=== PATIENT | female | born 1960 | race Caucasian/White ===

== ENCOUNTER → 2017-10-31 | Outpatient (CLI) | payer OTHER ==
[~2017-10-31] VITALS: Ht 152.4 cm; Wt 74.8 kg
== END | disposition home or self-care (01) ==
LOC: PPHC 17:16
DX: J03.80 Acute tonsillitis due to other specified organisms (principal)

== ENCOUNTER → 2018-01-16 | Outpatient (CLI) | payer OTHER | END | disposition home or self-care (01) | LOC: PPHC 09:45 | DX: L03.032 Cellulitis of left toe (principal) ==

== ENCOUNTER 2018-06-21 14:53 | Emergency (ER) | payer OTHER ==
[~2018-06-21] VITALS: Ht 160 cm; Wt 68.0 kg
== END 2018-06-21 18:10 | disposition home or self-care (01) ==
LOC: ER 14:53
DX: S52.531A Colles' fracture of right radius, initial encounter for closed fracture (principal); W18.39XA Other fall on same level, initial encounter; Y93.89 Activity, other specified; Y92.488 Other paved roadways as the place of occurrence of the external cause; Y99.8 Other external cause status

== ENCOUNTER 2018-07-13 12:31 | Outpatient (CLI) | payer OTHER | END 2018-07-13 12:49 | disposition home or self-care (01) | LOC: NUCLEAR 12:31 | DX: M81.0 Age-related osteoporosis without current pathological fracture (principal); M89.8X0 Other specified disorders of bone, multiple sites ==

== ENCOUNTER 2018-07-13 13:39 | Outpatient (CLI) | payer OTHER | END 2018-07-13 13:47 | disposition home or self-care (01) | LOC: RAD 13:39 | DX: M79.641 Pain in right hand (principal) ==

== ENCOUNTER 2018-09-03 12:06 | Outpatient (CLI) | payer OTHER | END 2018-09-03 14:42 | disposition home or self-care (01) | LOC: RAD 501 12:06 | DX: M79.641 Pain in right hand (principal) ==

== ENCOUNTER 2019-01-01 11:10 | Outpatient (CLI) | payer OTHER | END 2019-01-01 15:30 | disposition home or self-care (01) | LOC: LAB 11:10 | DX: J11.1 Influenza due to unidentified influenza virus with other respiratory manifestations (principal); J20.0 Acute bronchitis due to Mycoplasma pneumoniae ==

== ENCOUNTER 2020-11-19 14:40 | Emergency (ER) | payer OTHER ==
[~2020-11-19] VITALS: Ht 165.1 cm; Wt 74.8 kg
== END 2020-11-19 18:42 | disposition home or self-care (01) ==
LOC: ER 14:40
DX: L30.8 Other specified dermatitis (principal)

== ENCOUNTER → 2023-02-22 | Outpatient (CLI) | payer OTHER | END | disposition home or self-care (01) | LOC: NUCLEAR 13:00 | PROVIDERS: ATTEND Obstetrics & Gynecology | DX: M85.80 Other specified disorders of bone density and structure, unspecified site (principal) ==

== ENCOUNTER 2024-09-09 12:18 | Emergency (ER) | payer OTHER ==
[~2024-09-09] VITALS: Ht 160 cm; Wt 70.3 kg
[2024-09-09] MEDS ORDERED: METHYLPREDNISOLONE SOD SUCC 40 MG VIAL IM ONE (13:45)
[2024-09-09] MEDS ORDERED: KETOROLAC TROMETHAMINE 60 MG VIAL IM ONE (13:45)
[2024-09-09] MEDS ORDERED: MEDROLPACK PO (14:57)
== END 2024-09-09 16:34 | disposition home or self-care (01) ==
LOC: ER 12:20
DX: M25.562 Pain in left knee (principal); Z91.018 Allergy to other foods

== ENCOUNTER → 2025-02-26 | Outpatient (CLI) | payer OTHER ==
[~2025-02-26] MED LIST: MEDROLPACK PO
== END | disposition home or self-care (01) ==
LOC: TOM 13:55
PROVIDERS: ATTEND Internal Medicine Gastroenterology
DX: Z12.11 Encounter for screening for malignant neoplasm of colon (principal)

== ENCOUNTER → 2025-06-19 09:15 | Outpatient (CLI) | payer OTHER | END | disposition home or self-care (01) | LOC: NUCLEAR 09:15 | PROVIDERS: ATTEND Internal Medicine Gastroenterology | DX: K81.1 Chronic cholecystitis (principal) ==